=== PATIENT | female | born 1990 | race Caucasian/White ===

== ENCOUNTER 2017-11-03 22:51 | Inpatient (IN) | payer OTHER ==
--- NOTE | 2017-11-04 00:19 | HP ---
General Information - General Information Maternal Age: 27 Grav: 2 Para: 1 SAB: 0 IEA: 0 Estimated Due Date: 10/30/17 Determined By: LMP Gestational Age in Weeks and Days: 40 Weeks and 4 Days Maternal Blood Type and Rh: A Positive - Results this Serology/RPR Result: Non-Reactive Rubella Result: Immune HBsAg Result: Negative HIV Result: Negative GBS Culture Result: Negative Past Medical History Delivery History: Hx Uncomplicated Vaginal Delivery, See Records Delivery History Comment: Hx preeclampsia w/ 24 hours on mag sulfate Pertinent Past Medical History: Non-Contributory Past Medical History Comment: Lyme disease w/ carditis, eczema Pertinent Past Surgical History: See Records - [place] tooth extraction Pertinent Family History: Non-Contributory - Antepartal Records Antepartal Records: Reviewed, Complicated by: - echogenic foci on anatomy sono, declines geneic screening Review of Systems Constitutional: Uncomfortable - regular mild to moderate ctx and abdominal pruritis CV Complaint: No Respiratory: Shortness of Breath: No Gastrointestinal: No Nausea/Vomiting, Normal Bowel Movement Genitourinary: Leaking Fluid, No Dysuria, No Bleeding Musculoskeletal: No Complaint Neurological: No Headache, No Visual Changes Movement: Normal Exam Allergies/Adverse Reactions: Allergies No Known Allergies Allergy (Verified 11/03/17 23:31) T- 98.4, P-65, R-20, BP 131/67, O2 97% Lab Values - Entire Visit: Laboratory Tests 11/03/17 23:06 Vag Amniotic Fld Detect Positive - Measurements Height: 5 ft 4 in Weight: 79.379 kg Weight in lbs: 175 Body Mass Index (BMI): 30.0 Pre- Weight: 57.606 kg Weight Gained This : 48 lbs and 0 ozs - Exam Abdomen: No Upper Quadrant Pain Breast: Breast Exam Deferred CVA: No CVA Tenderness Extremities: Edema - bilateral pedal edema Heart: Normal Rhythm/Heart Sounds HEENT: No Significant Findings Lungs: Clear Bilaterally Rectal: Rectal Exam Deferred Reflexes: DTR 2+ Thyroid: No Thyromegaly - Abdominal Exam Abdomen Exam: Non-Tender, Fundal Height Consistent with Dates - Ultrasound/Biophysical Profile Ultrasound Status: Not Done Targeted Exam Findings See L&D Outpatient Visit Provider Note for Findings: N/A Cervical Exam: 4cm Effacement: 80% Station: -2 Presenting Part: Vertex Membrane Status: SROM Amniotic Fluid Evaluation: Positive ROM Plus Bleeding/Discharge: None EFM Findings - External Monitor Findings Baseline Heart Rate: 125 External Monitor Findings: Accelerations Present, No Pattern of Variable or Late Decelerations, Variability Moderate, Baseline Stable Contractions: Regular, Moderate, 45-90 Seconds Contraction Frequency: 2-3 minutes
[2017-11-04 00:41] LABS: ABS Basophils 0.1 10^3/ul (0-0.2); ABS Eosinophils 0.1 10^3/ul (0-0.6); ABS Lymphocytes 3.3 10^3/ul (1.0-4.8); ABS Monocytes 0.6 10^3/ul (0-0.8); ABS Neutrophils 6.5 10^3/ul (1.5-7.7); ABS Nucleated RBC 0 10^3/ul; Eosinophil % 0.5 % (0-6); Hematocrit 39 % (35-47); Hemoglobin 13.6 g/dl (12.0-16.0); Lymphocyte % 31.4 % (25-47); Mean Corpuscular HGB Conc 35 g/dl (31-36); Mean Corpuscular Hemoglobin 30 pg (27-31); Mean Corpuscular Volume 86 fL (80-97); Mean Platelet Volume 8.8 um3 (7.4-10.4); Nucleated Red Blood Cells % 0; Platelet Count 212 10^3/ul (150-450); Red Blood Count 4.48 10^6/ul (4.0-5.4); Red Cell Distribution Width 13 % (10.5-15); White Blood Count 10.5 10^3/ul (3.5-10.8)
[2017-11-04 00:55] LABS: EGFR Non-African American 75.7 (>60)
[2017-11-04] MEDS ORDERED: OBEPIDURAL* 250 ML EPIDURAL ONE (02:40)
[2017-11-04] MEDS ORDERED: Famotidine TAB* 20 MG PO PRN (03:20)
[2017-11-04] MEDS ORDERED: Sodium Citrate/Citric Acid* 15 ML UDC PO PRN (03:20)
[2017-11-04] MEDS ORDERED: EPHEDrine (Pressors)* 50 MG/ML VIAL IV PUSH PRN ×2 (03:20)
[2017-11-04] MEDS ORDERED: Phenylephrine IV* 40 MCG/ML 10 ML SYRINGE IV PUSH PRN ×2 (03:20)
[2017-11-04] MEDS ORDERED: OBEPIDURAL* 250 ML EPIDURAL SCH (04:00)
[2017-11-04] MEDS ORDERED: Oxytocin in LR* 20 UNITS/1,000 ML BAG IVPB ONE (09:08)
[2017-11-04] MEDS ORDERED: Witch Hazel PAD* JAR ONE (09:12)
[2017-11-04] MEDS ORDERED: Dibucaine 1% 28.35 GM TUBE ONE (09:12)
[2017-11-04] MEDS ORDERED: Glycerin ADULT SUPP PR PRN (09:14)
[2017-11-04] MEDS ORDERED: Acetaminophen TAB* 325 MG PO PRN (09:14)
[2017-11-04] MEDS ORDERED: Witch Hazel PAD* JAR TOPICAL PRN (09:14)
[2017-11-04] MEDS ORDERED: Dibucaine 1% 28.35 GM TUBE PR PRN (09:14)
[2017-11-04] MEDS ORDERED: Oxytocin in LR* 20 UNITS/1,000 ML BAG IVPB SCH (10:00)
[2017-11-04] MEDS: Docusate CAP* 100 MG PO SCH ×2 (16:00→20:10)
[2017-11-04] MEDS: Ibuprofen TAB* 600 MG PO PRN (20:10)
[2017-11-05 06:53] LABS: Hematocrit 34 % (35-47); Hemoglobin 11.8 g/dl (12.0-16.0); Mean Corpuscular HGB Conc 35 g/dl (31-36); Mean Corpuscular Hemoglobin 30 pg (27-31); Mean Corpuscular Volume 86 fL (80-97); Platelet Count 152 10^3/ul (150-450); Red Blood Count 3.96 10^6/ul (4.0-5.4); Red Cell Distribution Width 13 % (10.5-15); White Blood Count 12.9 10^3/ul (3.5-10.8)
[2017-11-05] MEDS: Ibuprofen TAB* 600 MG PO PRN (08:28)
[2017-11-05] MEDS: Docusate CAP* 100 MG PO SCH (08:28)
[2017-11-05] MEDS ORDERED: Ferrous Gluconate TAB* 324 MG TAB PO SCH (09:00)
[2017-11-05 10:43] VITALS: BP 129/71
== END 2017-11-05 13:11 | disposition home or self-care (01) | DRG 560 ==
LOC: MCHOBOUT 22:51 → MCHOB 23:41
PROVIDERS: ADMIT Midwife; ATTEND Midwife
PROC: 10E0XZZ Delivery of Products of Conception, External Approach (ICD-10-PCS; principal; 2017-11-04)
DX: O48.0 Post-term pregnancy (principal); Z3A.40 40 weeks gestation of pregnancy; Z37.0 Single live birth
CPT/HCPCS: 36415; 80053; 84112; 84550; 85025; 85027; 86850; 86900; 86901; A9270-GY